=== PATIENT | male | born 1985 | race Caucasian/White ===

== ENCOUNTER 2017-11-22 19:11 | Emergency (ER) | payer SELFPAY | END 2017-11-23 03:46 | disposition left against medical advice (07) | LOC: E/R 19:11 | DX: Z53.21 Procedure and treatment not carried out due to patient leaving prior to being seen by health care provider (principal) ==

== ENCOUNTER 2018-05-20 17:55 | Inpatient (IN) | payer MEDICAID, OTHER ==
[2018-05-20 19:23] LABS: ABNORMAL IP MESSAGE 1; HEMATOCRIT 24.8 % (42.0-52.0); HEMOGLOBIN 7.8 g/dl (14.0-18.0); MEAN CORPUSCULAR HEMOGLOBIN 28.6 pg (29.0-33.0); MEAN CORPUSCULAR HGB CONC 31.5 g/dl (32.0-37.0); MEAN CORPUSCULAR VOLUME 90.8 fl (82.0-101.0); MEAN PLATELET VOLUME 9.2 fl (7.4-10.4); NUCLEATED RED BLOOD CELLS% 0.6 /100WBC (0.0-0.0); POSITIVE DIFF @See below; RED BLOOD COUNT 2.73 10^6/ul (4.70-6.10); RED CELL DISTRIBUTION WIDTH 19.4 % (11.5-14.5)
[2018-05-20 19:23] LABS: WHITE BLOOD COUNT 12.3 10^3/ul (4.8-10.8)
[2018-05-20 19:28] LABS: HEMOGLOBIN A1C 4.8 % (0-5.9)
[2018-05-20 19:29] LABS: ADD MAN DIFF? YES; PLATELET COUNT 27 10^3/UL (140-415)
[2018-05-20 19:39] LABS: ANION GAP 17 (8-16); BLOOD UREA NITROGEN 21 mg/dl (7-20); CALCIUM 8.6 mg/dl (8.4-10.2); CARBON DIOXIDE 28 mmol/L (21-31); CHLORIDE 99 mmol/L (97-110); CHOL/HDL RATIO 4.5 RATIO; CHOLESTEROL 108 mg/dl (100-200); CREATINE KINASE 157 IU/L (23-200); CREATININE 1.25 mg/dl (0.61-1.24); GLUCOSE 135 mg/dl (70-220); HDL CHOLESTEROL 24 mg/dl (28-63); LDL CHOLESTEROL,CALCULATED 52 mg/dl; SODIUM 140 mmol/L (135-144); TRIGLYCERIDES 161 mg/dl (0-149)
[2018-05-20 19:46] LABS: ANISOCYTOSIS 2+ (0-0); BAND NEUTROPHILS #M 0.4 10^3/ul (0.0-0.6); BAND NEUTROPHILS % (M) 4 % (0-4); EOSINOPHILS % (M) 8 % (0-7); HELMET CELLS 1+ (0-0); LYMPHOCYTES #M 2.4 10^3/ul (0.8-2.9); LYMPHOCYTES % (M) 20 % (15-51); METAMYELOCYTES #M 0.1 10^3/ul (0.0-0.0); METAMYELOCYTES %M 1 % (0-0); MICROCYTOSIS 2+ (0-0); MONOCYTE #M 0.2 10^3/ul (0.3-0.9); MONOCYTES % (M) 2 % (0-11); PLATELET ESTIMATE SIG DECREASED; POIKILOCYTOSIS 1+ (0-0); POLYCHROMASIA 2+ (0-0); SEGMENTED NEUTROPHILS (M) % 65 % (39-77); SMUDGE%M 5 % (0-0)
[2018-05-20 19:48] LABS: INR 1.16; PT RATIO 1.2
[2018-05-20 19:51] LABS: CK INDEX 0.8
[2018-05-20 19:52] LABS: CK-MB 1.33 ng/ml (0.0-2.4); TROPONIN-I 0.501 ng/ml (0.000-0.120)
[2018-05-20] MEDS: SOD CHLORIDE 0.9% 500 ML IV (19:59)
[2018-05-20 20:33] LABS: PARTIAL THROMBOPLASTIN TIME 31.5 Sec (25.0-35.0)
[2018-05-20 20:54] LABS: RETICULOCYTE COUNT # 0.279 X10^6 (0.020-0.110); RETICULOCYTE COUNT % 10.6 % (0.5-1.5)
[2018-05-20 20:54] LABS: RETICULOCYTE RBC 2.64
[2018-05-20 21:01] LABS: IRON 46 ug/dl (35-150)
[2018-05-20 21:11] LABS: % IRON SATURATION 15 % SAT (22-52); TOTAL IRON BINDING CAPACITY 312 ug/dl (241-421)
[2018-05-20 21:22] LABS: LACTATE DEHYDROGENASE 2174 IU/L (313-618)
[2018-05-20] MEDS ORDERED: ALBUTEROL/IPRATROPIUM (NEB) 3 ML AMP HHN (22:30)
[2018-05-20] MEDS ORDERED: NACL 0.9% 3 ML SYG IV (22:30)
[2018-05-20] MEDS ORDERED: ONDANSETRON 4 MG INJ IV (22:30)
[2018-05-20] MEDS ORDERED: NITROGLYCERIN (SL) 0.4 MG TAB SL (22:30)
[2018-05-20 23:17] LABS: CREATINE KINASE 136 IU/L (23-200)
[2018-05-20 23:31] LABS: CK INDEX 0.9
[2018-05-20 23:51] LABS: CK-MB 1.24 ng/ml (0.0-2.4); TROPONIN-I 0.556 ng/ml (0.000-0.120)
[2018-05-21] MEDS: PANTOPRAZOLE 40 MG INJ IV (05:18)
[2018-05-21 06:33] LABS: ADD MAN DIFF? NO
[2018-05-21 06:44] LABS: ABNORMAL IP MESSAGE 1; BASOPHILS % 0.3 % (0.0-2.0); EOSINOPHILS # 0.5 10^3/ul (0.0-0.5); EOSINOPHILS % 4.8 % (0.0-7.0); HEMATOCRIT 24.5 % (42.0-52.0); HEMOGLOBIN 7.8 g/dl (14.0-18.0); LYMPHOCYTES # 1.1 10^3/ul (0.8-2.9); LYMPHOCYTES % 10.2 % (15.0-51.0); MEAN CORPUSCULAR HGB CONC 31.8 g/dl (32.0-37.0); MEAN CORPUSCULAR VOLUME 91.1 fl (82.0-101.0); MONOCYTE # 0.6 10^3/ul (0.3-0.9); MONOCYTES % 5.3 % (0.0-11.0); NEUTROPHIL # 7.9 10^3/ul (1.6-7.5); NEUTROPHILS % 75.5 % (39.0-77.0); NUCLEATED RED BLOOD CELLS # 0.1 10^3/ul (0.0-0.0); NUCLEATED RED BLOOD CELLS% 0.9 /100WBC (0.0-0.0); POSITIVE DIFF @See below; RED BLOOD COUNT 2.69 10^6/ul (4.70-6.10); RED CELL DISTRIBUTION WIDTH 19.1 % (11.5-14.5)
[2018-05-21 06:44] LABS: WHITE BLOOD COUNT 10.5 10^3/ul (4.8-10.8)
[2018-05-21 06:51] LABS: PLATELET COUNT 22 10^3/UL (140-415)
[2018-05-21 07:07] LABS: CREATINE KINASE 126 IU/L (23-200)
[2018-05-21 07:21] LABS: CK INDEX 0.8
[2018-05-21 07:24] LABS: CK-MB 1.06 ng/ml (0.0-2.4); TROPONIN-I 0.456 ng/ml (0.000-0.120)
[2018-05-21 07:25] LABS: HEMOGLOBIN A1C 4.8 % (0-5.9)
[2018-05-21 07:27] LABS: ALANINE AMINOTRANSFERASE 39 IU/L (13-69); ALBUMIN 3.5 g/dl (3.3-4.9); ALBUMIN/GLOBULIN RATIO 0.94; ALKALINE PHOSPHATASE 79 IU/L (42-121); ANION GAP 13 (8-16); ASPARTATE AMINO TRANSFERASE 42 IU/L (15-46); BLOOD UREA NITROGEN 20 mg/dl (7-20); CALCIUM 8.6 mg/dl (8.4-10.2); CARBON DIOXIDE 28 mmol/L (21-31); CHLORIDE 103 mmol/L (97-110); CHOL/HDL RATIO 4.2 RATIO; CHOLESTEROL 114 mg/dl (100-200); CREATININE 1.16 mg/dl (0.61-1.24); GLUCOSE 125 mg/dl (70-220); HDL CHOLESTEROL 27 mg/dl (28-63); LDL CHOLESTEROL,CALCULATED 68 mg/dl; MAGNESIUM 1.8 mg/dl (1.7-2.5); POTASSIUM 4.3 mmol/L (3.5-5.1); SODIUM 140 mmol/L (135-144); TOTAL PROTEIN 7.2 g/dl (6.1-8.1); TRIGLYCERIDES 95 mg/dl (0-149)
[2018-05-21 08:08] LABS: IRON 54 ug/dl (35-150)
[2018-05-21 08:18] LABS: % IRON SATURATION 17 % SAT (22-52); TOTAL IRON BINDING CAPACITY 311 ug/dl (241-421)
[2018-05-21] MEDS: IOHEXOL 100 ML (14:52)
[2018-05-21] MEDS: SOD CHLORIDE 0.9% 100 ML (14:52)
[2018-05-21] MEDS: IOHEXOL 0 ML (14:53)
[2018-05-21 16:02] LABS: HAAIG REFLEX REFLEX FILED
[2018-05-21 16:10] LABS: PLATELET COUNT 14 10^3/UL (140-415)
[2018-05-21 16:26] LABS: IRON 56 ug/dl (35-150)
[2018-05-21 16:30] LABS: INR 1.13; PROTIME 14.7 Sec (11.9-14.9); PT RATIO 1.1
[2018-05-21 16:31] LABS: THROMBIN TIME 16.7 SEC (13.8-19.1)
[2018-05-21 16:34] LABS: LACTATE DEHYDROGENASE 2187 IU/L (313-618)
[2018-05-21 16:34] LABS: D-DIMER 2507.56 ng/ml (<460)
[2018-05-21 16:37] LABS: % IRON SATURATION 19 % SAT (22-52); TOTAL IRON BINDING CAPACITY 298 ug/dl (241-421)
[2018-05-21 16:56] LABS: TYPE AND SCREEN 1
[2018-05-21 16:59] LABS: HEPATITIS B SURFACE ANTIGEN NEGATIVE (NEGATIVE)
[2018-05-21 17:16] LABS: HEPATITIS B CORE ANTIBODY NEGATIVE (NEGATIVE); HEPATITIS C VIRAL ANTIBODY NEGATIVE (NEGATIVE)
[2018-05-21 17:31] LABS: FIBRIN SPLIT PRODUCT >10 and <40 ug/ml (<10)
[2018-05-21 17:33] LABS: FOLATE 14.5 ng/ml (2.8-20.0)
[2018-05-21] MEDS: METHYLPREDNISOLONE 125 MG INJ IV ×2 (20:36→23:37)
[2018-05-21 20:42] LABS: ADD MAN DIFF? NO
[2018-05-21 20:43] LABS: ABNORMAL IP MESSAGE 1; BASOPHILS % 0.3 % (0.0-2.0); EOSINOPHILS # 0.6 10^3/ul (0.0-0.5); EOSINOPHILS % 4.6 % (0.0-7.0); HEMATOCRIT 24.5 % (42.0-52.0); HEMOGLOBIN 7.7 g/dl (14.0-18.0); LYMPHOCYTES # 1.5 10^3/ul (0.8-2.9); LYMPHOCYTES % 12.6 % (15.0-51.0); MEAN CORPUSCULAR HEMOGLOBIN 28.7 pg (29.0-33.0); MEAN CORPUSCULAR HGB CONC 31.4 g/dl (32.0-37.0); MEAN CORPUSCULAR VOLUME 91.4 fl (82.0-101.0); MEAN PLATELET VOLUME 8.7 fl (7.4-10.4); MONOCYTE # 0.8 10^3/ul (0.3-0.9); MONOCYTES % 6.3 % (0.0-11.0); NEUTROPHIL # 8.6 10^3/ul (1.6-7.5); NEUTROPHILS % 72.2 % (39.0-77.0); NUCLEATED RED BLOOD CELLS # 0.1 10^3/ul (0.0-0.0); NUCLEATED RED BLOOD CELLS% 0.6 /100WBC (0.0-0.0); POSITIVE DIFF @See below; RED BLOOD COUNT 2.68 10^6/ul (4.70-6.10); RED CELL DISTRIBUTION WIDTH 19.2 % (11.5-14.5)
[2018-05-21 20:48] LABS: PLATELET COUNT 24 10^3/UL (140-415)
[2018-05-21] MEDS: CALCIUM GLUCONATE 10% 2 GM in SOD CHLORIDE 0.9% 100 ML IVPB (20:59)
[2018-05-21] MEDS: CALCIUM GLUCONATE 10% 1 GM in SOD CHLORIDE 0.9% 100 ML IVPB (21:00)
[2018-05-21] MEDS: ATORVASTATIN 40 MG TAB PO (21:01)
[2018-05-22 01:53] LABS: AADO2 Arterial 168.6 mmHg (7.0-24.0); Allen Test ACCEPTAB; Arterial Base Excess 2.8 mmol/L (-3.0-3); Arterial Blood Gas Oxygen Sat 84.6 mmHG (95.0-98.0); Arterial Fraction of Oxyhgb 82.6 % (93.0-99.0); Arterial MetHb 0.4 % (0.0-1.5); Arterial Total Hemglobin 8.8 g/dl (12.0-18.0); Arterial pCO2 54.3 mmhg (35-45); Blood Gas IEPAP 20/6; Blood Gas PS 14; MODE MASK - BIPAP; Site Right Radial
[2018-05-22 03:37] LABS: IMMEDIATE SPIN CROSSMATCH 1
[2018-05-22] MEDS: PANTOPRAZOLE 40 MG INJ IV (06:17)
[2018-05-22] MEDS: METHYLPREDNISOLONE 125 MG INJ IV ×3 (06:17→21:56)
[2018-05-22 07:29] LABS: ADD MAN DIFF? NO
[2018-05-22 07:33] LABS: AADO2 Arterial 217.7 mmHg (7.0-24.0); Allen Test ACCEPTAB; Arterial Base Excess 5.5 mmol/L (-3.0-3); Arterial Blood Gas Oxygen Sat 99.1 mmHG (95.0-98.0); Arterial COHb 1.1 % (0.0-3.0); Arterial Fraction of Oxyhgb 97.6 % (93.0-99.0); Arterial HCO3 31.1 mmol/L (22.0-26.0); Arterial MetHb 0.4 % (0.0-1.5); Arterial Total Hemglobin 9.4 g/dl (12.0-18.0); Arterial pCO2 51.2 mmhg (35-45); Blood Gas IEPAP 20/6; Blood Gas PS 14; MODE MASK - BIPAP; Site Right Radial
[2018-05-22 07:39] LABS: WHITE BLOOD COUNT 10.4 10^3/ul (4.8-10.8)
[2018-05-22 07:39] LABS: ABNORMAL IP MESSAGE 1; BASOPHILS % 0.2 % (0.0-2.0); EOSINOPHILS % 0.1 % (0.0-7.0); HEMOGLOBIN 8.4 g/dl (14.0-18.0); LYMPHOCYTES # 0.7 10^3/ul (0.8-2.9); LYMPHOCYTES % 6.9 % (15.0-51.0); MEAN CORPUSCULAR HEMOGLOBIN 29.4 pg (29.0-33.0); MEAN CORPUSCULAR HGB CONC 32.3 g/dl (32.0-37.0); MEAN CORPUSCULAR VOLUME 90.9 fl (82.0-101.0); MONOCYTE # 0.2 10^3/ul (0.3-0.9); MONOCYTES % 1.8 % (0.0-11.0); NEUTROPHILS % 86.5 % (39.0-77.0); NUCLEATED RED BLOOD CELLS% 0.4 /100WBC (0.0-0.0); POSITIVE DIFF @See below; RED BLOOD COUNT 2.86 10^6/ul (4.70-6.10); RED CELL DISTRIBUTION WIDTH 18.2 % (11.5-14.5)
[2018-05-22 07:40] LABS: PLATELET COUNT 36 10^3/UL (140-415)
[2018-05-22 08:06] LABS: ANION GAP 18 (8-16); BLOOD UREA NITROGEN 19 mg/dl (7-20); CALCIUM 9.4 mg/dl (8.4-10.2); CARBON DIOXIDE 30 mmol/L (21-31); CHLORIDE 99 mmol/L (97-110); CREATINE KINASE 66 IU/L (23-200); CREATININE 0.96 mg/dl (0.61-1.24); GLUCOSE 178 mg/dl (70-220); POTASSIUM 4.9 mmol/L (3.5-5.1); SODIUM 142 mmol/L (135-144)
[2018-05-22 08:29] LABS: CK-MB 0.63 ng/ml (0.0-2.4); TROPONIN-I 0.214 ng/ml (0.000-0.120)
[2018-05-22] MEDS: morphine 2 MG INJ IV (08:52)
[2018-05-22] MEDS ORDERED: predniSONE 50 MG TAB PO (09:00)
[2018-05-22] MEDS ORDERED: CA GLUCONATE (50 MG/ML) IV SYG IV* (09:56)
[2018-05-22] MEDS ORDERED: HEPARIN 1000 UNITS/ML 10 ML INJ (10:53)
[2018-05-22] MEDS: CALCIUM GLUCONATE 10% 2 GM in SOD CHLORIDE 0.9% 100 ML IVPB (12:20)
[2018-05-22] MEDS: CITRATE DEXTROSE SOLUTION 1,000 ML SOLUTION MC (12:20)
[2018-05-22] MEDS: CALCIUM GLUCONATE 10% 2 GM in DEXTROSE 5% 100 ML IVPB (12:30)
[2018-05-22] MEDS ORDERED: CITRATE DEXTROSE SOLUTION 1,000 ML SOLUTION MC (12:30)
[2018-05-22] MEDS: DIPHENHYDRAMINE 50 MG INJ IV (13:18)
[2018-05-22] MEDS: ACETAMINOPHEN 325 MG TAB PO (13:19)
[2018-05-22] MEDS ORDERED: IOHEXOL 14.3 MG(I)/ML (ADULT) BTL PO (16:00)
[2018-05-22 16:41] LABS: TRANSFERRIN 234 mg/dL (188-341)
[2018-05-22] MEDS: SOD CHLORIDE 0.9% 1,000 ML IV (17:28)
[2018-05-22 19:53] LABS: ADD UMIC YES; UR ASCORBIC ACID 40 mg/dL (NEGATIVE); UR BILIRUBIN (Dip) NEGATIVE (NEGATIVE); UR BLOOD (Dip) 1+ mg/dL (NEGATIVE); UR CLARITY CLEAR (CLEAR); UR COLOR YELLOW (YELLOW); UR GLUCOSE (Dip) NEGATIVE (NEGATIVE); UR KETONES (Dip) NEGATIVE (NEGATIVE); UR LEUKOCYTE ESTERASE (Dip) NEGATIVE Leu/ul (NEGATIVE); UR MUCUS FEW /HPF (NONE SEEN); UR NITRITE (Dip) NEGATIVE (NEGATIVE); UR RBC 2 /HPF (0-5); UR SPECIFIC GRAVITY (Dip) 1.027 (1.003-1.030); UR TOTAL PROTEIN (Dip) 1+ mg/dl (NEGATIVE); UR UROBILINOGEN (Dip) 1+ mg/dL (NEGATIVE); UR WBC 5 /HPF (0-5)
[2018-05-22 20:17] LABS: OPIATES Positive (NEGATIVE)
[2018-05-22 20:26] LABS: AMPHETAMINE/METHAMPHETAMINE Negative (NEGATIVE); BARBITURATES Negative (NEGATIVE); BENZODIAZEPINES Negative (NEGATIVE); CANNABINOIDS Negative (NEGATIVE); COCAINE Negative (NEGATIVE)
[2018-05-22] MEDS: IOHEXOL 14.3 MG(I)/ML (ADULT) BTL PO (20:59)
[2018-05-22] MEDS: ATORVASTATIN 40 MG TAB PO (21:56)
[2018-05-22 22:15] LABS: ADD MAN DIFF? NO
[2018-05-22 22:19] LABS: ABNORMAL IP MESSAGE 1; BASOPHILS % 0.2 % (0.0-2.0); HEMATOCRIT 28.5 % (42.0-52.0); LYMPHOCYTES # 0.7 10^3/ul (0.8-2.9); LYMPHOCYTES % 4.4 % (15.0-51.0); MEAN CORPUSCULAR HEMOGLOBIN 28.8 pg (29.0-33.0); MEAN CORPUSCULAR HGB CONC 31.6 g/dl (32.0-37.0); MEAN CORPUSCULAR VOLUME 91.3 fl (82.0-101.0); MONOCYTE # 0.7 10^3/ul (0.3-0.9); MONOCYTES % 4.3 % (0.0-11.0); NEUTROPHIL # 14.1 10^3/ul (1.6-7.5); NEUTROPHILS % 88.6 % (39.0-77.0); NUCLEATED RED BLOOD CELLS% 0.1 /100WBC (0.0-0.0); PLATELET COUNT 63 10^3/UL (140-415); POSITIVE DIFF @See below; RED BLOOD COUNT 3.12 10^6/ul (4.70-6.10); RED CELL DISTRIBUTION WIDTH 18.6 % (11.5-14.5)
[2018-05-22 22:19] LABS: WHITE BLOOD COUNT 15.9 10^3/ul (4.8-10.8)
[2018-05-22] MEDS: IOHEXOL 300MG/ML 150 ML BTL (22:48)
[2018-05-22] MEDS: SOD CHLORIDE 0.9% 100 ML (22:48)
[2018-05-23] MEDS: PANTOPRAZOLE 40 MG INJ IV (05:07)
[2018-05-23] MEDS: METHYLPREDNISOLONE 125 MG INJ IV ×3 (05:07→21:58)
[2018-05-23 05:22] LABS: ADD MAN DIFF? NO
[2018-05-23 05:29] LABS: ABNORMAL IP MESSAGE 1; BASOPHILS % 0.1 % (0.0-2.0); HEMOGLOBIN 8.7 g/dl (14.0-18.0); LYMPHOCYTES # 0.9 10^3/ul (0.8-2.9); LYMPHOCYTES % 5.3 % (15.0-51.0); MEAN CORPUSCULAR HEMOGLOBIN 28.5 pg (29.0-33.0); MEAN CORPUSCULAR HGB CONC 31.1 g/dl (32.0-37.0); MEAN CORPUSCULAR VOLUME 91.8 fl (82.0-101.0); MONOCYTE # 0.5 10^3/ul (0.3-0.9); NEUTROPHIL # 15.3 10^3/ul (1.6-7.5); NEUTROPHILS % 89.7 % (39.0-77.0); NUCLEATED RED BLOOD CELLS% 0.2 /100WBC (0.0-0.0); PLATELET COUNT 75 10^3/UL (140-415); POSITIVE DIFF @See below; RED BLOOD COUNT 3.05 10^6/ul (4.70-6.10); RED CELL DISTRIBUTION WIDTH 18.5 % (11.5-14.5); RETICULOCYTE COUNT # 0.276 X10^6 (0.020-0.110); RETICULOCYTE COUNT % 9.1 % (0.5-1.5); RETICULOCYTE RBC 3.05
[2018-05-23 05:39] LABS: MEAN PLATELET VOLUME 13.3 fl (7.4-10.4)
[2018-05-23 05:46] LABS: LACTATE DEHYDROGENASE 818 IU/L (313-618)
[2018-05-23 05:51] LABS: ALANINE AMINOTRANSFERASE 28 IU/L (13-69); ALBUMIN/GLOBULIN RATIO 1.29; ALKALINE PHOSPHATASE 66 IU/L (42-121); ANION GAP 16 (8-16); ASPARTATE AMINO TRANSFERASE 20 IU/L (15-46); BILIRUBIN,INDIRECT 0.6 mg/dl (0-1.1); BILIRUBIN,TOTAL 0.6 mg/dl (0.2-1.3); BLOOD UREA NITROGEN 27 mg/dl (7-20); CALCIUM 8.8 mg/dl (8.4-10.2); CARBON DIOXIDE 33 mmol/L (21-31); CHLORIDE 96 mmol/L (97-110); CREATININE 0.99 mg/dl (0.61-1.24); GLUCOSE 210 mg/dl (70-220); POTASSIUM 4.3 mmol/L (3.5-5.1); SODIUM 141 mmol/L (135-144); TOTAL PROTEIN 7.1 g/dl (6.1-8.1)
[2018-05-23] MEDS: SOD CHLORIDE 0.9% 1,000 ML IV ×2 (06:32→21:00)
[2018-05-23] MEDS ORDERED: DEXAMETHASONE 4 MG/ML 1 ML INJ IV (08:00)
[2018-05-23] MEDS ORDERED: DIPHENHYDRAMINE 50 MG INJ IV (08:00)
[2018-05-23] MEDS ORDERED: MEPERIDINE 25 MG INJ IV (08:00)
[2018-05-23 09:33] LABS: ADD MAN DIFF? NO
[2018-05-23 09:36] LABS: ABNORMAL IP MESSAGE 1; BASOPHILS % 0.1 % (0.0-2.0); HEMATOCRIT 29.5 % (42.0-52.0); LYMPHOCYTES # 0.8 10^3/ul (0.8-2.9); LYMPHOCYTES % 4.1 % (15.0-51.0); MEAN CORPUSCULAR HEMOGLOBIN 28.2 pg (29.0-33.0); MEAN CORPUSCULAR HGB CONC 30.5 g/dl (32.0-37.0); MEAN CORPUSCULAR VOLUME 92.5 fl (82.0-101.0); MEAN PLATELET VOLUME 13.1 fl (7.4-10.4); MONOCYTE # 0.6 10^3/ul (0.3-0.9); MONOCYTES % 3.1 % (0.0-11.0); NEUTROPHIL # 17.3 10^3/ul (1.6-7.5); PLATELET COUNT 85 10^3/UL (140-415); POSITIVE DIFF @See below; RED BLOOD COUNT 3.19 10^6/ul (4.70-6.10); RED CELL DISTRIBUTION WIDTH 18.6 % (11.5-14.5)
[2018-05-23 09:36] LABS: WHITE BLOOD COUNT 19.1 10^3/ul (4.8-10.8)
[2018-05-23 15:01] LABS: ANA SCREEN NEGATIVE (NEGATIVE)
[2018-05-23 17:16] LABS: HAPTOGLOBIN <15 mg/dL (43-212)
[2018-05-23 18:02] LABS: IMMEDIATE SPIN CROSSMATCH 1 2
[2018-05-23] MEDS: CITRATE DEXTROSE SOLUTION 1,000 ML SOLUTION MC (19:10)
[2018-05-23] MEDS: DIPHENHYDRAMINE 50 MG INJ IV ×2 (19:10→22:21)
[2018-05-23] MEDS: CALCIUM GLUCONATE 10% 3 GM in SOD CHLORIDE 0.9% 100 ML IVPB (19:10)
[2018-05-23] MEDS: ACETAMINOPHEN 325 MG TAB PO (21:58)
[2018-05-23] MEDS: ATORVASTATIN 40 MG TAB PO (21:58)
[2018-05-23] MEDS ORDERED: GLUCOSE GEL 15 GRAM TUBE PO ×2 (22:00)
[2018-05-23] MEDS ORDERED: GLUCOSE GEL 15 GRAM TUBE BUCCAL (22:00)
[2018-05-23] MEDS ORDERED: DEXTROSE 50% 50 ML SYRINGE IV ×2 (22:00)
[2018-05-23] MEDS ORDERED: GLUCAGON 1 MG INJ IM (22:00)
[2018-05-23] MEDS: RITUXIMAB IV (22:40)
[2018-05-23] MEDS: SOD CHLORIDE 0.9% IV (22:40)
[2018-05-23 23:27] LABS: ADD MAN DIFF? NO
[2018-05-23 23:35] LABS: BASOPHILS % 0.1 % (0.0-2.0); HEMATOCRIT 31.2 % (42.0-52.0); HEMOGLOBIN 9.6 g/dl (14.0-18.0); LYMPHOCYTES % 5.4 % (15.0-51.0); MEAN CORPUSCULAR HEMOGLOBIN 28.9 pg (29.0-33.0); MEAN CORPUSCULAR HGB CONC 30.8 g/dl (32.0-37.0); MEAN PLATELET VOLUME 12.7 fl (7.4-10.4); MONOCYTE # 0.7 10^3/ul (0.3-0.9); MONOCYTES % 3.8 % (0.0-11.0); NEUTROPHIL # 17.1 10^3/ul (1.6-7.5); NUCLEATED RED BLOOD CELLS% 0.2 /100WBC (0.0-0.0); PLATELET COUNT 110 10^3/UL (140-415); RED BLOOD COUNT 3.32 10^6/ul (4.70-6.10); RED CELL DISTRIBUTION WIDTH 18.3 % (11.5-14.5)
[2018-05-23 23:35] LABS: WHITE BLOOD COUNT 19.2 10^3/ul (4.8-10.8)
[2018-05-24] MEDS: INSULIN ASPART [NOVOLOG] 3 ML PEN SC ×6 (01:15→23:30)
[2018-05-24] MEDS: METHYLPREDNISOLONE 125 MG INJ IV ×3 (05:25→23:27)
[2018-05-24] MEDS: PANTOPRAZOLE 40 MG INJ IV (05:25)
[2018-05-24 07:13] LABS: ADD MAN DIFF? NO
[2018-05-24 07:16] LABS: WHITE BLOOD COUNT 21.9 10^3/ul (4.8-10.8)
[2018-05-24 07:16] LABS: ABNORMAL IP MESSAGE 1; BASOPHILS % 0.1 % (0.0-2.0); HEMATOCRIT 31.4 % (42.0-52.0); HEMOGLOBIN 9.6 g/dl (14.0-18.0); LYMPHOCYTES # 0.6 10^3/ul (0.8-2.9); LYMPHOCYTES % 2.6 % (15.0-51.0); MEAN CORPUSCULAR HEMOGLOBIN 28.3 pg (29.0-33.0); MEAN CORPUSCULAR HGB CONC 30.6 g/dl (32.0-37.0); MEAN CORPUSCULAR VOLUME 92.6 fl (82.0-101.0); MEAN PLATELET VOLUME 12.2 fl (7.4-10.4); MONOCYTE # 0.8 10^3/ul (0.3-0.9); MONOCYTES % 3.7 % (0.0-11.0); NEUTROPHIL # 20.2 10^3/ul (1.6-7.5); NEUTROPHILS % 92.1 % (39.0-77.0); NUCLEATED RED BLOOD CELLS% 0.1 /100WBC (0.0-0.0); PLATELET COUNT 112 10^3/UL (140-415); POSITIVE DIFF @See below; RED BLOOD COUNT 3.39 10^6/ul (4.70-6.10); RED CELL DISTRIBUTION WIDTH 18.4 % (11.5-14.5); RETICULOCYTE COUNT # 0.305 X10^6 (0.020-0.110); RETICULOCYTE RBC 3.39
[2018-05-24 07:36] LABS: LACTATE DEHYDROGENASE 698 IU/L (313-618)
[2018-05-24 07:39] LABS: ALANINE AMINOTRANSFERASE 32 IU/L (13-69); ALBUMIN 3.9 g/dl (3.3-4.9); ALBUMIN/GLOBULIN RATIO 1.39; ALKALINE PHOSPHATASE 62 IU/L (42-121); ANION GAP 16 (8-16); ASPARTATE AMINO TRANSFERASE 18 IU/L (15-46); BILIRUBIN,INDIRECT 0.5 mg/dl (0-1.1); BILIRUBIN,TOTAL 0.5 mg/dl (0.2-1.3); BLOOD UREA NITROGEN 29 mg/dl (7-20); CALCIUM 8.7 mg/dl (8.4-10.2); CARBON DIOXIDE 33 mmol/L (21-31); CHLORIDE 98 mmol/L (97-110); CREATININE 0.97 mg/dl (0.61-1.24); GLUCOSE 157 mg/dl (70-220); POTASSIUM 4.6 mmol/L (3.5-5.1); SODIUM 142 mmol/L (135-144); TOTAL PROTEIN 6.7 g/dl (6.1-8.1)
[2018-05-24] MEDS: SOD CHLORIDE 0.9% 1,000 ML IV ×2 (09:00→14:29)
[2018-05-24 09:03] LABS: HIV 1&2 ANTIBODY NEGATIVE (NEGATIVE)
[2018-05-24 10:19] LABS: ADD MAN DIFF? NO
[2018-05-24 10:22] LABS: WHITE BLOOD COUNT 20.3 10^3/ul (4.8-10.8)
[2018-05-24 10:22] LABS: ABNORMAL IP MESSAGE 1; HEMATOCRIT 31.1 % (42.0-52.0); HEMOGLOBIN 9.6 g/dl (14.0-18.0); LYMPHOCYTES # 0.5 10^3/ul (0.8-2.9); LYMPHOCYTES % 2.4 % (15.0-51.0); MEAN CORPUSCULAR HEMOGLOBIN 28.4 pg (29.0-33.0); MEAN CORPUSCULAR HGB CONC 30.9 g/dl (32.0-37.0); MEAN PLATELET VOLUME 12.1 fl (7.4-10.4); MONOCYTE # 0.4 10^3/ul (0.3-0.9); NEUTROPHIL # 19.1 10^3/ul (1.6-7.5); NUCLEATED RED BLOOD CELLS% 0.1 /100WBC (0.0-0.0); PLATELET COUNT 119 10^3/UL (140-415); POSITIVE DIFF @See below; RED BLOOD COUNT 3.38 10^6/ul (4.70-6.10); RED CELL DISTRIBUTION WIDTH 18.1 % (11.5-14.5)
[2018-05-24 12:55] LABS: HEPARIN INDUCED PLATELET AB NEGATIVE (NEGATIVE)
[2018-05-24] MEDS: CALCIUM GLUCONATE 10% 3 GM in SOD CHLORIDE 0.9% 100 ML IVPB (18:39)
[2018-05-24] MEDS: CITRATE DEXTROSE SOLUTION 1,000 ML SOLUTION MC (18:39)
[2018-05-24 19:37] LABS: ALBUMIN 3.1 g/dL (3.8-4.8); ALPHA-1-GLOBULINS 0.4 g/dL (0.2-0.3); ALPHA-2-GLOBULINS 0.7 g/dL (0.5-0.9); BETA 2 GLOBULINS 0.5 g/dL (0.2-0.5); BETA GLOBULINS 0.4 g/dL (0.4-0.6); GAMMA GLOBULINS 1.7 g/dL (0.8-1.7); PROTEIN, TOTAL 6.8 g/dL (6.1-8.1)
[2018-05-24] MEDS: DIPHENHYDRAMINE 50 MG INJ IV (19:38)
[2018-05-24] MEDS: ATORVASTATIN 40 MG TAB PO (23:23)
[2018-05-25 00:45] LABS: ADD MAN DIFF? NO
[2018-05-25 00:46] LABS: WHITE BLOOD COUNT 17.1 10^3/ul (4.8-10.8)
[2018-05-25 00:46] LABS: BASOPHILS % 0.1 % (0.0-2.0); HEMATOCRIT 32.7 % (42.0-52.0); HEMOGLOBIN 10.1 g/dl (14.0-18.0); LYMPHOCYTES % 5.7 % (15.0-51.0); MEAN CORPUSCULAR HEMOGLOBIN 28.5 pg (29.0-33.0); MEAN CORPUSCULAR HGB CONC 30.9 g/dl (32.0-37.0); MEAN CORPUSCULAR VOLUME 92.4 fl (82.0-101.0); MEAN PLATELET VOLUME 11.9 fl (7.4-10.4); MONOCYTE # 0.8 10^3/ul (0.3-0.9); MONOCYTES % 4.5 % (0.0-11.0); NEUTROPHIL # 15.1 10^3/ul (1.6-7.5); NEUTROPHILS % 87.9 % (39.0-77.0); NUCLEATED RED BLOOD CELLS% 0.1 /100WBC (0.0-0.0); PLATELET COUNT 138 10^3/UL (140-415); RED BLOOD COUNT 3.54 10^6/ul (4.70-6.10); RED CELL DISTRIBUTION WIDTH 17.9 % (11.5-14.5)
[2018-05-25] MEDS: INSULIN ASPART [NOVOLOG] 3 ML PEN SC ×6 (01:55→20:40)
[2018-05-25] MEDS: METHYLPREDNISOLONE 125 MG INJ IV ×4 (02:06→22:12)
[2018-05-25] MEDS: ATORVASTATIN 40 MG TAB PO ×2 (02:06→20:36)
[2018-05-25] MEDS: PANTOPRAZOLE 40 MG INJ IV (05:37)
[2018-05-25 05:46] LABS: ADD MAN DIFF? NO
[2018-05-25 05:54] LABS: ABNORMAL IP MESSAGE 1; BASOPHILS % 0.1 % (0.0-2.0); HEMATOCRIT 32.1 % (42.0-52.0); HEMOGLOBIN 9.9 g/dl (14.0-18.0); LYMPHOCYTES # 0.7 10^3/ul (0.8-2.9); LYMPHOCYTES % 4.3 % (15.0-51.0); MEAN CORPUSCULAR HEMOGLOBIN 28.4 pg (29.0-33.0); MEAN CORPUSCULAR HGB CONC 30.8 g/dl (32.0-37.0); MEAN PLATELET VOLUME 11.1 fl (7.4-10.4); MONOCYTE # 0.6 10^3/ul (0.3-0.9); NEUTROPHIL # 13.9 10^3/ul (1.6-7.5); NEUTROPHILS % 90.2 % (39.0-77.0); PLATELET COUNT 142 10^3/UL (140-415); POSITIVE DIFF @See below; RED BLOOD COUNT 3.49 10^6/ul (4.70-6.10); RED CELL DISTRIBUTION WIDTH 17.8 % (11.5-14.5); RETICULOCYTE COUNT # 0.336 X10^6 (0.020-0.110); RETICULOCYTE COUNT % 9.6 % (0.5-1.5); RETICULOCYTE RBC 3.49
[2018-05-25 05:54] LABS: WHITE BLOOD COUNT 15.4 10^3/ul (4.8-10.8)
[2018-05-25 06:23] LABS: LACTATE DEHYDROGENASE 531 IU/L (313-618)
[2018-05-25 06:50] LABS: ALANINE AMINOTRANSFERASE 42 IU/L (13-69); ALBUMIN 3.4 g/dl (3.3-4.9); ALBUMIN/GLOBULIN RATIO 1.17; ALKALINE PHOSPHATASE 55 IU/L (42-121); ANION GAP 12 (8-16); ASPARTATE AMINO TRANSFERASE 24 IU/L (15-46); BILIRUBIN,INDIRECT 0.5 mg/dl (0-1.1); BILIRUBIN,TOTAL 0.5 mg/dl (0.2-1.3); BLOOD UREA NITROGEN 28 mg/dl (7-20); CALCIUM 8.5 mg/dl (8.4-10.2); CARBON DIOXIDE 30 mmol/L (21-31); CHLORIDE 103 mmol/L (97-110); GLUCOSE 170 mg/dl (70-220); POTASSIUM 4.4 mmol/L (3.5-5.1); SODIUM 141 mmol/L (135-144); TOTAL PROTEIN 6.3 g/dl (6.1-8.1)
[2018-05-25] MEDS: SOD CHLORIDE 0.9% 1,000 ML IV ×2 (07:07→11:23)
[2018-05-25 09:25] LABS: ADD MAN DIFF? NO
[2018-05-25 09:32] LABS: WHITE BLOOD COUNT 15.7 10^3/ul (4.8-10.8)
[2018-05-25 09:32] LABS: ABNORMAL IP MESSAGE 1; BASOPHILS % 0.1 % (0.0-2.0); HEMATOCRIT 34.6 % (42.0-52.0); HEMOGLOBIN 10.6 g/dl (14.0-18.0); LYMPHOCYTES # 0.6 10^3/ul (0.8-2.9); LYMPHOCYTES % 3.8 % (15.0-51.0); MEAN CORPUSCULAR HEMOGLOBIN 28.3 pg (29.0-33.0); MEAN CORPUSCULAR HGB CONC 30.6 g/dl (32.0-37.0); MEAN CORPUSCULAR VOLUME 92.5 fl (82.0-101.0); MEAN PLATELET VOLUME 11.9 fl (7.4-10.4); MONOCYTE # 0.3 10^3/ul (0.3-0.9); NEUTROPHIL # 14.5 10^3/ul (1.6-7.5); NEUTROPHILS % 92.5 % (39.0-77.0); NUCLEATED RED BLOOD CELLS% 0.1 /100WBC (0.0-0.0); PLATELET COUNT 152 10^3/UL (140-415); POSITIVE DIFF @See below; RED BLOOD COUNT 3.74 10^6/ul (4.70-6.10); RED CELL DISTRIBUTION WIDTH 17.4 % (11.5-14.5)
[2018-05-25] MEDS: CALCIUM GLUCONATE 10% 3 GM in SOD CHLORIDE 0.9% 100 ML IVPB (13:11)
[2018-05-25] MEDS: CITRATE DEXTROSE SOLUTION 1,000 ML SOLUTION MC (13:12)
[2018-05-25] MEDS: DIPHENHYDRAMINE 50 MG INJ IV (13:46)
[2018-05-25] MEDS: ACETAMINOPHEN 325 MG TAB PO (13:46)
[2018-05-25] MEDS ORDERED: morphine LIQ (10 MG/5 ML) CUP PO (18:00)
[2018-05-25 22:23] LABS: ADD MAN DIFF? NO
[2018-05-25 22:25] LABS: WHITE BLOOD COUNT 17.3 10^3/ul (4.8-10.8)
[2018-05-25 22:25] LABS: BASOPHILS % 0.1 % (0.0-2.0); HEMATOCRIT 35.8 % (42.0-52.0); LYMPHOCYTES # 0.8 10^3/ul (0.8-2.9); LYMPHOCYTES % 4.6 % (15.0-51.0); MEAN CORPUSCULAR HEMOGLOBIN 28.3 pg (29.0-33.0); MEAN CORPUSCULAR HGB CONC 30.7 g/dl (32.0-37.0); MEAN PLATELET VOLUME 11.8 fl (7.4-10.4); MONOCYTE # 1.1 10^3/ul (0.3-0.9); MONOCYTES % 6.4 % (0.0-11.0); NEUTROPHIL # 15.1 10^3/ul (1.6-7.5); NEUTROPHILS % 87.1 % (39.0-77.0); NUCLEATED RED BLOOD CELLS% 0.1 /100WBC (0.0-0.0); PLATELET COUNT 193 10^3/UL (140-415); RED BLOOD COUNT 3.89 10^6/ul (4.70-6.10); RED CELL DISTRIBUTION WIDTH 17.3 % (11.5-14.5)
[2018-05-26] MEDS: INSULIN ASPART [NOVOLOG] 3 ML PEN SC ×6 (00:45→20:48)
[2018-05-26] MEDS: SOD CHLORIDE 0.9% 1,000 ML IV ×3 (01:00→14:20)
[2018-05-26] MEDS: PANTOPRAZOLE 40 MG INJ IV (05:29)
[2018-05-26] MEDS: METHYLPREDNISOLONE 125 MG INJ IV ×3 (05:30→21:49)
[2018-05-26 05:37] LABS: ADD MAN DIFF? NO
[2018-05-26 05:48] LABS: BASOPHILS % 0.1 % (0.0-2.0); HEMATOCRIT 35.1 % (42.0-52.0); HEMOGLOBIN 10.8 g/dl (14.0-18.0); LYMPHOCYTES # 0.7 10^3/ul (0.8-2.9); LYMPHOCYTES % 4.1 % (15.0-51.0); MEAN CORPUSCULAR HEMOGLOBIN 28.1 pg (29.0-33.0); MEAN CORPUSCULAR HGB CONC 30.8 g/dl (32.0-37.0); MEAN CORPUSCULAR VOLUME 91.4 fl (82.0-101.0); MEAN PLATELET VOLUME 12.4 fl (7.4-10.4); MONOCYTE # 0.6 10^3/ul (0.3-0.9); MONOCYTES % 3.8 % (0.0-11.0); NEUTROPHIL # 14.9 10^3/ul (1.6-7.5); NEUTROPHILS % 90.8 % (39.0-77.0); NUCLEATED RED BLOOD CELLS% 0.1 /100WBC (0.0-0.0); PLATELET COUNT 138 10^3/UL (140-415); RED BLOOD COUNT 3.84 10^6/ul (4.70-6.10); RED CELL DISTRIBUTION WIDTH 17.2 % (11.5-14.5); RETICULOCYTE COUNT # 0.358 X10^6 (0.020-0.110); RETICULOCYTE COUNT % 9.3 % (0.5-1.5); RETICULOCYTE RBC 3.84
[2018-05-26 05:48] LABS: WHITE BLOOD COUNT 16.4 10^3/ul (4.8-10.8)
[2018-05-26 06:26] LABS: LACTATE DEHYDROGENASE 499 IU/L (313-618)
[2018-05-26 06:29] LABS: ALANINE AMINOTRANSFERASE 40 IU/L (13-69); ALBUMIN 3.4 g/dl (3.3-4.9); ALBUMIN/GLOBULIN RATIO 1.17; ALKALINE PHOSPHATASE 56 IU/L (42-121); ANION GAP 14 (8-16); ASPARTATE AMINO TRANSFERASE 23 IU/L (15-46); BILIRUBIN,INDIRECT 0.6 mg/dl (0-1.1); BILIRUBIN,TOTAL 0.6 mg/dl (0.2-1.3); BLOOD UREA NITROGEN 27 mg/dl (7-20); CALCIUM 8.6 mg/dl (8.4-10.2); CARBON DIOXIDE 28 mmol/L (21-31); CHLORIDE 103 mmol/L (97-110); CREATININE 0.89 mg/dl (0.61-1.24); GLUCOSE 159 mg/dl (70-220); POTASSIUM 4.5 mmol/L (3.5-5.1); SODIUM 140 mmol/L (135-144); TOTAL PROTEIN 6.3 g/dl (6.1-8.1)
[2018-05-26] MEDS: DIPHENHYDRAMINE 50 MG INJ IV (10:00)
[2018-05-26] MEDS: ACETAMINOPHEN 325 MG TAB PO (10:01)
[2018-05-26 10:22] LABS: TYPE AND SCREEN 1 1
[2018-05-26 10:30] LABS: ADD MAN DIFF? NO
[2018-05-26 10:36] LABS: WHITE BLOOD COUNT 18.5 10^3/ul (4.8-10.8)
[2018-05-26 10:36] LABS: ABNORMAL IP MESSAGE 1; BASOPHILS % 0.2 % (0.0-2.0); HEMOGLOBIN 11.4 g/dl (14.0-18.0); LYMPHOCYTES # 0.6 10^3/ul (0.8-2.9); MEAN CORPUSCULAR HEMOGLOBIN 28.8 pg (29.0-33.0); MEAN CORPUSCULAR HGB CONC 31.7 g/dl (32.0-37.0); MEAN CORPUSCULAR VOLUME 90.9 fl (82.0-101.0); MEAN PLATELET VOLUME 11.7 fl (7.4-10.4); MONOCYTE # 0.4 10^3/ul (0.3-0.9); MONOCYTES % 2.2 % (0.0-11.0); NEUTROPHIL # 17.3 10^3/ul (1.6-7.5); NEUTROPHILS % 93.3 % (39.0-77.0); NUCLEATED RED BLOOD CELLS% 0.2 /100WBC (0.0-0.0); PLATELET COUNT 213 10^3/UL (140-415); POSITIVE DIFF @See below; RED BLOOD COUNT 3.96 10^6/ul (4.70-6.10)
[2018-05-26] MEDS: CITRATE DEXTROSE SOLUTION 1,000 ML SOLUTION MC (11:11)
[2018-05-26] MEDS: CALCIUM GLUCONATE 10% 3 GM in SOD CHLORIDE 0.9% 100 ML IVPB (11:11)
[2018-05-26] MEDS: ATORVASTATIN 40 MG TAB PO (20:34)
[2018-05-26] MEDS: INSULIN GLARGINE [LANtus] 3 ML PEN SC (21:45)
[2018-05-27] MEDS: INSULIN ASPART [NOVOLOG] 3 ML PEN SC ×6 (01:00→21:02)
[2018-05-27] MEDS: SOD CHLORIDE 0.9% 1,000 ML IV ×2 (03:40→17:46)
[2018-05-27] MEDS: PANTOPRAZOLE 40 MG INJ IV (05:44)
[2018-05-27] MEDS: METHYLPREDNISOLONE 125 MG INJ IV ×2 (05:47→13:04)
[2018-05-27 07:41] LABS: ADD MAN DIFF? NO
[2018-05-27 07:53] LABS: BASOPHILS % 0.1 % (0.0-2.0); EOSINOPHILS # 0.1 10^3/ul (0.0-0.5); EOSINOPHILS % 0.8 % (0.0-7.0); HEMATOCRIT 36.5 % (42.0-52.0); HEMOGLOBIN 11.4 g/dl (14.0-18.0); LYMPHOCYTES # 1.3 10^3/ul (0.8-2.9); LYMPHOCYTES % 7.3 % (15.0-51.0); MEAN CORPUSCULAR HEMOGLOBIN 28.4 pg (29.0-33.0); MEAN CORPUSCULAR HGB CONC 31.2 g/dl (32.0-37.0); MEAN PLATELET VOLUME 10.7 fl (7.4-10.4); MONOCYTES % 5.5 % (0.0-11.0); NEUTROPHIL # 15.3 10^3/ul (1.6-7.5); PLATELET COUNT 218 10^3/UL (140-415); RED BLOOD COUNT 4.01 10^6/ul (4.70-6.10); RED CELL DISTRIBUTION WIDTH 17.2 % (11.5-14.5); RETICULOCYTE COUNT # 0.344 X10^6 (0.020-0.110); RETICULOCYTE COUNT % 8.6 % (0.5-1.5); RETICULOCYTE RBC 4.01
[2018-05-27 08:19] LABS: ALANINE AMINOTRANSFERASE 40 IU/L (13-69); ALBUMIN 3.3 g/dl (3.3-4.9); ALBUMIN/GLOBULIN RATIO 1.37; ALKALINE PHOSPHATASE 52 IU/L (42-121); ANION GAP 12 (8-16); ASPARTATE AMINO TRANSFERASE 16 IU/L (15-46); BILIRUBIN,INDIRECT 0.5 mg/dl (0-1.1); BILIRUBIN,TOTAL 0.5 mg/dl (0.2-1.3); BLOOD UREA NITROGEN 31 mg/dl (7-20); CALCIUM 8.3 mg/dl (8.4-10.2); CARBON DIOXIDE 33 mmol/L (21-31); CHLORIDE 98 mmol/L (97-110); CREATININE 1.01 mg/dl (0.61-1.24); GLUCOSE 117 mg/dl (70-220); POTASSIUM 4.3 mmol/L (3.5-5.1); SODIUM 139 mmol/L (135-144); TOTAL PROTEIN 5.7 g/dl (6.1-8.1)
[2018-05-27 08:20] LABS: LACTATE DEHYDROGENASE 467 IU/L (313-618)
[2018-05-27] MEDS: CALCIUM GLUCONATE 10% 3 GM in SOD CHLORIDE 0.9% 100 ML IVPB (10:08)
[2018-05-27] MEDS: CITRATE DEXTROSE SOLUTION 1,000 ML SOLUTION MC (10:08)
[2018-05-27] MEDS: DIPHENHYDRAMINE 50 MG INJ IV (11:52)
[2018-05-27] MEDS: ACETAMINOPHEN 325 MG TAB PO (11:52)
[2018-05-27 16:11] LABS: HAPTOGLOBIN 94 mg/dL (43-212)
[2018-05-27] MEDS: INSULIN GLARGINE [LANtus] 3 ML PEN SC (19:59)
[2018-05-27] MEDS: ATORVASTATIN 40 MG TAB PO (20:47)
[2018-05-27] MEDS: LISINOPRIL 5 MG TAB PO (20:47)
[2018-05-28] MEDS: INSULIN ASPART [NOVOLOG] 3 ML PEN SC ×6 (01:00→20:06)
[2018-05-28] MEDS: PANTOPRAZOLE 40 MG INJ IV (05:29)
[2018-05-28] MEDS: SOD CHLORIDE 0.9% 1,000 ML IV ×2 (07:32→19:52)
[2018-05-28 08:17] LABS: ADD MAN DIFF? NO
[2018-05-28 08:21] LABS: ABNORMAL IP MESSAGE 1; BASOPHILS % 0.1 % (0.0-2.0); EOSINOPHILS # 0.2 10^3/ul (0.0-0.5); EOSINOPHILS % 1.3 % (0.0-7.0); HEMATOCRIT 36.9 % (42.0-52.0); HEMOGLOBIN 11.6 g/dl (14.0-18.0); LYMPHOCYTES % 10.9 % (15.0-51.0); MEAN CORPUSCULAR HEMOGLOBIN 28.5 pg (29.0-33.0); MEAN CORPUSCULAR HGB CONC 31.4 g/dl (32.0-37.0); MEAN CORPUSCULAR VOLUME 90.7 fl (82.0-101.0); MEAN PLATELET VOLUME 10.4 fl (7.4-10.4); MONOCYTE # 1.2 10^3/ul (0.3-0.9); MONOCYTES % 6.8 % (0.0-11.0); NEUTROPHIL # 14.5 10^3/ul (1.6-7.5); NEUTROPHILS % 79.9 % (39.0-77.0); PLATELET COUNT 240 10^3/UL (140-415); POSITIVE DIFF @See below; RED BLOOD COUNT 4.07 10^6/ul (4.70-6.10); RED CELL DISTRIBUTION WIDTH 16.8 % (11.5-14.5); RETICULOCYTE COUNT % 8.1 % (0.5-1.5); RETICULOCYTE RBC 4.07
[2018-05-28 08:21] LABS: WHITE BLOOD COUNT 18.1 10^3/ul (4.8-10.8)
[2018-05-28 08:42] LABS: LACTATE DEHYDROGENASE 462 IU/L (313-618)
[2018-05-28] MEDS: predniSONE 20 MG TAB PO (09:01)
[2018-05-28] MEDS: LISINOPRIL 5 MG TAB PO ×2 (09:01→20:03)
[2018-05-28 09:44] LABS: ALBUMIN 3.1 g/dl (3.3-4.9); ALBUMIN/GLOBULIN RATIO 1.14; ALKALINE PHOSPHATASE 53 IU/L (42-121); ANION GAP 11 (8-16); ASPARTATE AMINO TRANSFERASE 39 IU/L (15-46); BILIRUBIN,TOTAL 0.6 mg/dl (0.2-1.3); BLOOD UREA NITROGEN 29 mg/dl (7-20); CALCIUM 8.3 mg/dl (8.4-10.2)
[2018-05-28 09:49] LABS: ALANINE AMINOTRANSFERASE 31 IU/L (13-69); BILIRUBIN,INDIRECT 0.6 mg/dl (0-1.1); CARBON DIOXIDE 30 mmol/L (21-31); CHLORIDE 104 mmol/L (97-110); CREATININE 0.97 mg/dl (0.61-1.24); GLUCOSE 101 mg/dl (70-220); SODIUM 141 mmol/L (135-144); TOTAL PROTEIN 5.8 g/dl (6.1-8.1)
[2018-05-28] MEDS: ACETAMINOPHEN 325 MG TAB PO (10:30)
[2018-05-28] MEDS: DIPHENHYDRAMINE 50 MG INJ IV (10:30)
[2018-05-28] MEDS: CITRATE DEXTROSE SOLUTION 1,000 ML SOLUTION MC (11:44)
[2018-05-28] MEDS: CALCIUM GLUCONATE 10% 3 GM in SOD CHLORIDE 0.9% 100 ML IVPB (11:44)
[2018-05-28] MEDS: ATORVASTATIN 40 MG TAB PO (20:03)
[2018-05-28] MEDS: INSULIN GLARGINE [LANtus] 3 ML PEN SC (20:11)
[2018-05-29] MEDS: INSULIN ASPART [NOVOLOG] 3 ML PEN SC ×6 (01:00→20:22)
[2018-05-29] MEDS: PANTOPRAZOLE 40 MG INJ IV (05:10)
[2018-05-29 07:05] LABS: ADD MAN DIFF? NO
[2018-05-29 07:13] LABS: ABNORMAL IP MESSAGE 1; BASOPHILS % 0.2 % (0.0-2.0); EOSINOPHILS # 0.4 10^3/ul (0.0-0.5); HEMATOCRIT 40.3 % (42.0-52.0); HEMOGLOBIN 12.5 g/dl (14.0-18.0); LYMPHOCYTES # 1.9 10^3/ul (0.8-2.9); LYMPHOCYTES % 10.2 % (15.0-51.0); MEAN CORPUSCULAR HEMOGLOBIN 28.7 pg (29.0-33.0); MEAN CORPUSCULAR VOLUME 92.6 fl (82.0-101.0); MEAN PLATELET VOLUME 10.8 fl (7.4-10.4); MONOCYTE # 1.2 10^3/ul (0.3-0.9); MONOCYTES % 6.6 % (0.0-11.0); PLATELET COUNT 265 10^3/UL (140-415); POSITIVE DIFF @See below; RED BLOOD COUNT 4.35 10^6/ul (4.70-6.10); RED CELL DISTRIBUTION WIDTH 16.6 % (11.5-14.5); RETICULOCYTE COUNT # 0.317 X10^6 (0.020-0.110); RETICULOCYTE COUNT % 7.3 % (0.5-1.5); RETICULOCYTE RBC 4.35
[2018-05-29 07:13] LABS: WHITE BLOOD COUNT 18.8 10^3/ul (4.8-10.8)
[2018-05-29 07:40] LABS: LACTATE DEHYDROGENASE 382 IU/L (313-618)
[2018-05-29 07:41] LABS: ALANINE AMINOTRANSFERASE 31 IU/L (13-69); ALBUMIN 3.2 g/dl (3.3-4.9); ALBUMIN/GLOBULIN RATIO 1.45; ALKALINE PHOSPHATASE 56 IU/L (42-121); ANION GAP 11 (8-16); ASPARTATE AMINO TRANSFERASE 15 IU/L (15-46); BILIRUBIN,INDIRECT 0.3 mg/dl (0-1.1); BILIRUBIN,TOTAL 0.3 mg/dl (0.2-1.3); BLOOD UREA NITROGEN 29 mg/dl (7-20); CALCIUM 8.1 mg/dl (8.4-10.2); CARBON DIOXIDE 33 mmol/L (21-31); CHLORIDE 101 mmol/L (97-110); CREATININE 1.02 mg/dl (0.61-1.24); GLUCOSE 105 mg/dl (70-220); POTASSIUM 4.1 mmol/L (3.5-5.1); SODIUM 141 mmol/L (135-144); TOTAL PROTEIN 5.4 g/dl (6.1-8.1)
[2018-05-29] MEDS: predniSONE 20 MG TAB PO (09:11)
[2018-05-29] MEDS: LISINOPRIL 5 MG TAB PO ×2 (09:12→20:19)
[2018-05-29] MEDS: SOD CHLORIDE 0.9% 1,000 ML IV (09:13)
[2018-05-29] MEDS: SOD CHLORIDE 0.9% 500 ML (10:30)
[2018-05-29] MEDS: LIDOCAINE 1% (MDV) 10 ML INJ ×2 (11:03)
[2018-05-29] MEDS: MIDAZOLAM 1 MG/ML 2 ML INJ (11:13)
[2018-05-29] MEDS: FENTAnyl 50 MCG/ML VIAL (11:13)
[2018-05-29] MEDS: CALCIUM GLUCONATE 10% 3 GM in SOD CHLORIDE 0.9% 100 ML IVPB (12:11)
[2018-05-29] MEDS: DIPHENHYDRAMINE 50 MG INJ IV (12:11)
[2018-05-29] MEDS: ACETAMINOPHEN 325 MG TAB PO (12:11)
[2018-05-29] MEDS: CITRATE DEXTROSE SOLUTION 1,000 ML SOLUTION MC (12:12)
[2018-05-29] MEDS: ATORVASTATIN 40 MG TAB PO (20:19)
[2018-05-29] MEDS: INSULIN GLARGINE [LANtus] 3 ML PEN SC (20:27)
[2018-05-30] MEDS: INSULIN ASPART [NOVOLOG] 3 ML PEN SC ×6 (01:00→20:09)
[2018-05-30] MEDS: PANTOPRAZOLE 40 MG INJ IV (05:13)
[2018-05-30] MEDS: predniSONE 20 MG TAB PO (08:27)
[2018-05-30] MEDS: LISINOPRIL 5 MG TAB PO ×2 (08:28→20:12)
[2018-05-30 08:52] LABS: ADD MAN DIFF? NO
[2018-05-30 09:07] LABS: WHITE BLOOD COUNT 15.5 10^3/ul (4.8-10.8)
[2018-05-30 09:07] LABS: ABNORMAL IP MESSAGE 1; BASOPHILS % 0.1 % (0.0-2.0); EOSINOPHILS # 0.4 10^3/ul (0.0-0.5); EOSINOPHILS % 2.7 % (0.0-7.0); HEMATOCRIT 41.6 % (42.0-52.0); HEMOGLOBIN 12.9 g/dl (14.0-18.0); LYMPHOCYTES % 12.7 % (15.0-51.0); MEAN CORPUSCULAR HEMOGLOBIN 28.6 pg (29.0-33.0); MEAN CORPUSCULAR VOLUME 92.2 fl (82.0-101.0); MONOCYTES % 6.4 % (0.0-11.0); NEUTROPHILS % 77.3 % (39.0-77.0); PLATELET COUNT 278 10^3/UL (140-415); POSITIVE DIFF @See below; RED BLOOD COUNT 4.51 10^6/ul (4.70-6.10); RED CELL DISTRIBUTION WIDTH 16.5 % (11.5-14.5); RETICULOCYTE COUNT # 0.286 X10^6 (0.020-0.110); RETICULOCYTE COUNT % 6.3 % (0.5-1.5); RETICULOCYTE RBC 4.51
[2018-05-30 09:16] LABS: LACTATE DEHYDROGENASE 410 IU/L (313-618)
[2018-05-30 09:22] LABS: ALANINE AMINOTRANSFERASE 30 IU/L (13-69); ALBUMIN 3.4 g/dl (3.3-4.9); ALBUMIN/GLOBULIN RATIO 1.41; ALKALINE PHOSPHATASE 63 IU/L (42-121); ANION GAP 12 (8-16); ASPARTATE AMINO TRANSFERASE 15 IU/L (15-46); BILIRUBIN,INDIRECT 0.4 mg/dl (0-1.1); BILIRUBIN,TOTAL 0.4 mg/dl (0.2-1.3); BLOOD UREA NITROGEN 27 mg/dl (7-20); CALCIUM 8.4 mg/dl (8.4-10.2); CARBON DIOXIDE 31 mmol/L (21-31); CHLORIDE 102 mmol/L (97-110); CREATININE 0.98 mg/dl (0.61-1.24); GLUCOSE 136 mg/dl (70-220); SODIUM 141 mmol/L (135-144); TOTAL PROTEIN 5.8 g/dl (6.1-8.1)
[2018-05-30] MEDS: CITRATE DEXTROSE SOLUTION 1,000 ML SOLUTION MC (11:25)
[2018-05-30] MEDS: ACETAMINOPHEN 325 MG TAB PO ×2 (11:25→20:25)
[2018-05-30] MEDS: CALCIUM GLUCONATE 10% 3 GM in SOD CHLORIDE 0.9% 100 ML IVPB (11:25)
[2018-05-30] MEDS: DIPHENHYDRAMINE 50 MG INJ IV ×2 (11:27→20:25)
[2018-05-30 11:28] LABS: TYPE AND SCREEN 1 1
[2018-05-30 14:56] LABS: HAPTOGLOBIN 112 mg/dL (43-212); HAPTOGLOBIN 124 mg/dL (43-212)
[2018-05-30] MEDS: ATORVASTATIN 40 MG TAB PO (20:12)
[2018-05-30] MEDS: INSULIN GLARGINE [LANtus] 3 ML PEN SC (20:14)
[2018-05-30] MEDS ORDERED: MEPERIDINE 50 MG INJ IV (21:30)
[2018-05-30] MEDS ORDERED: DEXAMETHASONE 10 MG/ML 1 ML INJ IV (21:30)
[2018-05-30] MEDS ORDERED: DIPHENHYDRAMINE 50 MG INJ IV (21:30)
[2018-05-30] MEDS: RITUXIMAB IV (23:31)
[2018-05-30] MEDS: SOD CHLORIDE 0.9% IV (23:31)
[2018-05-31] MEDS: INSULIN ASPART [NOVOLOG] 3 ML PEN SC ×6 (01:00→21:38)
[2018-05-31] MEDS: PANTOPRAZOLE 40 MG INJ IV (05:41)
[2018-05-31 06:37] LABS: ADD MAN DIFF? NO
[2018-05-31 06:44] LABS: WHITE BLOOD COUNT 14.3 10^3/ul (4.8-10.8)
[2018-05-31 06:44] LABS: ABNORMAL IP MESSAGE 1; BASOPHILS % 0.1 % (0.0-2.0); EOSINOPHILS # 0.4 10^3/ul (0.0-0.5); EOSINOPHILS % 2.6 % (0.0-7.0); HEMATOCRIT 38.1 % (42.0-52.0); LYMPHOCYTES # 1.5 10^3/ul (0.8-2.9); LYMPHOCYTES % 10.2 % (15.0-51.0); MEAN CORPUSCULAR HEMOGLOBIN 28.7 pg (29.0-33.0); MEAN CORPUSCULAR HGB CONC 31.5 g/dl (32.0-37.0); MEAN CORPUSCULAR VOLUME 91.1 fl (82.0-101.0); MEAN PLATELET VOLUME 10.5 fl (7.4-10.4); MONOCYTES % 6.7 % (0.0-11.0); NEUTROPHIL # 11.3 10^3/ul (1.6-7.5); NEUTROPHILS % 79.6 % (39.0-77.0); PLATELET COUNT 251 10^3/UL (140-415); POSITIVE DIFF @See below; RED BLOOD COUNT 4.18 10^6/ul (4.70-6.10); RETICULOCYTE COUNT # 0.221 X10^6 (0.020-0.110); RETICULOCYTE COUNT % 5.3 % (0.5-1.5); RETICULOCYTE RBC 4.18
[2018-05-31 07:15] LABS: LACTATE DEHYDROGENASE 348 IU/L (313-618)
[2018-05-31 07:18] LABS: ALANINE AMINOTRANSFERASE 36 IU/L (13-69); ALBUMIN 3.2 g/dl (3.3-4.9); ALBUMIN/GLOBULIN RATIO 1.23; ALKALINE PHOSPHATASE 57 IU/L (42-121); ANION GAP 11 (8-16); ASPARTATE AMINO TRANSFERASE 17 IU/L (15-46); BILIRUBIN,INDIRECT 0.4 mg/dl (0-1.1); BILIRUBIN,TOTAL 0.4 mg/dl (0.2-1.3); BLOOD UREA NITROGEN 22 mg/dl (7-20); CALCIUM 8.5 mg/dl (8.4-10.2); CARBON DIOXIDE 31 mmol/L (21-31); CHLORIDE 101 mmol/L (97-110); CREATININE 0.95 mg/dl (0.61-1.24); GLUCOSE 123 mg/dl (70-220); POTASSIUM 3.7 mmol/L (3.5-5.1); SODIUM 139 mmol/L (135-144); TOTAL PROTEIN 5.8 g/dl (6.1-8.1)
[2018-05-31] MEDS: predniSONE 20 MG TAB PO (08:49)
[2018-05-31] MEDS: LISINOPRIL 5 MG TAB PO ×2 (08:51→21:28)
[2018-05-31] MEDS: ATORVASTATIN 40 MG TAB PO (21:28)
[2018-05-31] MEDS: INSULIN GLARGINE [LANtus] 3 ML PEN SC (21:37)
[2018-06-01] MEDS: INSULIN ASPART [NOVOLOG] 3 ML PEN SC ×5 (01:00→17:00)
[2018-06-01 05:11] LABS: ADD MAN DIFF? NO
[2018-06-01 05:27] LABS: ABNORMAL IP MESSAGE 1; BASOPHILS % 0.1 % (0.0-2.0); EOSINOPHILS # 0.3 10^3/ul (0.0-0.5); HEMATOCRIT 40.5 % (42.0-52.0); HEMOGLOBIN 12.6 g/dl (14.0-18.0); LYMPHOCYTES % 6.7 % (15.0-51.0); MEAN CORPUSCULAR HEMOGLOBIN 28.3 pg (29.0-33.0); MEAN CORPUSCULAR HGB CONC 31.1 g/dl (32.0-37.0); MEAN PLATELET VOLUME 10.6 fl (7.4-10.4); MONOCYTE # 1.1 10^3/ul (0.3-0.9); NEUTROPHIL # 12.7 10^3/ul (1.6-7.5); NEUTROPHILS % 83.7 % (39.0-77.0); PLATELET COUNT 277 10^3/UL (140-415); POSITIVE DIFF @See below; RED BLOOD COUNT 4.45 10^6/ul (4.70-6.10); RETICULOCYTE COUNT # 0.198 X10^6 (0.020-0.110); RETICULOCYTE COUNT % 4.4 % (0.5-1.5); RETICULOCYTE RBC 4.45
[2018-06-01 05:27] LABS: WHITE BLOOD COUNT 15.2 10^3/ul (4.8-10.8)
[2018-06-01] MEDS: PANTOPRAZOLE 40 MG INJ IV (05:28)
[2018-06-01 05:41] LABS: ALANINE AMINOTRANSFERASE 35 IU/L (13-69); ALBUMIN 3.6 g/dl (3.3-4.9); ALBUMIN/GLOBULIN RATIO 1.33; ALKALINE PHOSPHATASE 61 IU/L (42-121); ANION GAP 12 (8-16); ASPARTATE AMINO TRANSFERASE 14 IU/L (15-46); BILIRUBIN,INDIRECT 0.3 mg/dl (0-1.1); BILIRUBIN,TOTAL 0.3 mg/dl (0.2-1.3); BLOOD UREA NITROGEN 25 mg/dl (7-20); CALCIUM 8.9 mg/dl (8.4-10.2); CARBON DIOXIDE 30 mmol/L (21-31); CHLORIDE 102 mmol/L (97-110); CREATININE 0.92 mg/dl (0.61-1.24); GLUCOSE 128 mg/dl (70-220); POTASSIUM 4.3 mmol/L (3.5-5.1); SODIUM 140 mmol/L (135-144); TOTAL PROTEIN 6.3 g/dl (6.1-8.1)
[2018-06-01 05:45] LABS: LACTATE DEHYDROGENASE 398 IU/L (313-618)
[2018-06-01] MEDS: predniSONE 20 MG TAB PO (08:13)
[2018-06-01] MEDS: LISINOPRIL 5 MG TAB PO (08:14)
[2018-06-03 16:46] LABS: HAPTOGLOBIN 133 mg/dL (43-212); HAPTOGLOBIN 155 mg/dL (43-212)
== END 2018-06-01 17:40 | disposition home or self-care (01) | DRG 477 ==
LOC: TEL 05-27 00:05 → E/R 17:55 → MS1 05-31 15:21 → ICU 05-21 18:55 → MS3 21:23
PROC: 30233K1 Transfusion of Nonautologous Frozen Plasma into Peripheral Vein, Percutaneous Approach (ICD-10-PCS; 2018-05-21)
PROC: 6A551Z3 Pheresis of Plasma, Multiple (ICD-10-PCS; 2018-05-22)
PROC: 06HM33Z Insertion of Infusion Device into Right Femoral Vein, Percutaneous Approach (ICD-10-PCS; 2018-05-22)
PROC: B54BZZA Ultrasonography of Right Lower Extremity Veins, Guidance (ICD-10-PCS; 2018-05-22)
PROC: 30233N1 Transfusion of Nonautologous Red Blood Cells into Peripheral Vein, Percutaneous Approach (ICD-10-PCS; 2018-05-22)
PROC: 0QB33ZX Excision of Left Pelvic Bone, Percutaneous Approach, Diagnostic (ICD-10-PCS; principal; 2018-05-29)
PROC: 07DR3ZX Extraction of Iliac Bone Marrow, Percutaneous Approach, Diagnostic (ICD-10-PCS; 2018-05-29)
DX: M31.1 Thrombotic microangiopathy (principal); I21.4 Non-ST elevation (NSTEMI) myocardial infarction; G45.9 Transient cerebral ischemic attack, unspecified; N17.9 Acute kidney failure, unspecified; Z68.44 Body mass index [BMI] 60.0-69.9, adult; D64.9 Anemia, unspecified; E66.01 Morbid (severe) obesity due to excess calories; F17.200 Nicotine dependence, unspecified, uncomplicated; G47.33 Obstructive sleep apnea (adult) (pediatric); G89.29 Other chronic pain; R51 Headache; R00.1 Bradycardia, unspecified; R59.1 Generalized enlarged lymph nodes
CPT/HCPCS: 36415; 36430; 36514; 36600; 70450; 70496; 70498; 71045; 71260; 74176; 74177; 76700; 77012; 80048; 80053; 80061; 80307; 81001; 82550; 82553; 82607; 82728; 82746; 82803; 82962; 83010; 83036; 83540; 83615; 83735; 84155; 84165; 84443; 84466; 84484; 85025; 85045; 85049; 85362; 85378; 85384; 85610; 85670; 85730; 86022; 86038; 86644; 86703; 86704; 86709; 86803; 86850; 86880; 86900; 86901; 86920; 86945; 87081; 87340; 88305; 88311; 88313; 92610; 93005; 93306; 94660; 97161; 99285-25; J9310

== ENCOUNTER 2019-05-08 16:03 | Emergency (ER) | payer OTHER, MEDICAID ==
[2019-05-08 16:49] LABS: ADD MAN DIFF? NO
[2019-05-08 16:50] LABS: BASOPHILS % 0.3 % (0.0-2.0); EOSINOPHILS # 0.3 10^3/ul (0.0-0.5); EOSINOPHILS % 3.8 % (0.0-7.0); HEMATOCRIT 40.9 % (42.0-52.0); HEMOGLOBIN 12.9 g/dl (14.0-18.0); LYMPHOCYTES # 1.3 10^3/ul (0.8-2.9); LYMPHOCYTES % 14.1 % (15.0-51.0); MEAN CORPUSCULAR HEMOGLOBIN 26.5 pg (29.0-33.0); MEAN CORPUSCULAR HGB CONC 31.5 g/dl (32.0-37.0); MEAN CORPUSCULAR VOLUME 84.2 fl (82.0-101.0); MEAN PLATELET VOLUME 10.8 fl (7.4-10.4); MONOCYTE # 0.5 10^3/ul (0.3-0.9); NEUTROPHIL # 6.8 10^3/ul (1.6-7.5); PLATELET COUNT 210 10^3/UL (140-415); RED BLOOD COUNT 4.86 10^6/ul (4.70-6.10); RED CELL DISTRIBUTION WIDTH 14.2 % (11.5-14.5)
[2019-05-08 17:13] LABS: ALANINE AMINOTRANSFERASE 91 IU/L (13-69); ALBUMIN 3.7 g/dl (3.3-4.9); ALKALINE PHOSPHATASE 106 IU/L (42-121); ANION GAP 7 (5-13); ASPARTATE AMINO TRANSFERASE 53 IU/L (15-46); BILIRUBIN,INDIRECT 0.3 mg/dl (0-1.1); BILIRUBIN,TOTAL 0.3 mg/dl (0.2-1.3); BLOOD UREA NITROGEN 16 mg/dl (7-20); CALCIUM 8.9 mg/dl (8.4-10.2); CARBON DIOXIDE 31 mmol/L (21-31); CHLORIDE 99 mmol/L (97-110); CREATININE 0.81 mg/dl (0.61-1.24); Estimated GFR > 60 mL/min (>60); GLUCOSE 323 mg/dl (70-220); LIPASE 36 U/L (23-300); SODIUM 137 mmol/L (135-144); TOTAL PROTEIN 7.4 g/dl (6.1-8.1)
[2019-05-08 17:25] LABS: B-TYPE NATRIURETIC PEPTIDE 134 PG/ML (0-125); TROPONIN-I < 0.012 ng/ml (0.000-0.120)
== END 2019-05-08 18:15 | disposition home or self-care (01) ==
LOC: E/R 16:03
DX: R60.0 Localized edema (principal); E66.01 Morbid (severe) obesity due to excess calories; F17.210 Nicotine dependence, cigarettes, uncomplicated
CPT/HCPCS: 36415; 71045; 80053; 83690; 83880; 84484; 85025; 93005; 99285-25

== ENCOUNTER 2019-07-30 20:07 | Emergency (ER) | payer OTHER | END 2019-07-30 21:53 | disposition home or self-care (01) | LOC: FTE 21:53 | DX: H92.02 Otalgia, left ear (principal); Z87.891 Personal history of nicotine dependence | CPT/HCPCS: 99282; Z7502 ==